=== PATIENT | male | born 1965 | race Caucasian/White ===

== ENCOUNTER 2019-08-08 14:49 | Emergency (ER) | payer BC, SELFPAY ==
--- NOTE | ~2019-08-08 | XR_ITS ---
XR finger 1st RT min 2V DATE: 08/08/2019 15:15 INDICATION: Fall, right hand/first digit injury TECHNIQUE: 3 views of the hand COMPARISON: None FINDINGS: There is osteoarthritic change at the triscaphe and interphalangeal joints primarily. No fr acture or dislocation, periosteal reaction or bone destruction is detected. IMPRESSION: Osteoarthritis Reviewed, dictated and finalized at location A. IMPRESSION: Osteoarthritis
[2019-08-08 15:08] VITALS: BP 136/89; PULSE 98; RESP 16; TEMP 36.3; O2SAT 99
--- NOTE | 2019-08-08 15:18 | ED.UPPEXIN ---
HPI - Extremity Injury (Upper) General Chief Complaint: Extremity Injury, Upper Stated Complaint: Fall Right thumb pain Time Seen by Provider: 08/08/19 15:18 Source: patient and RN notes reviewed History of Present Illness HPI narrative: Patient is a 54-year-old male that presents the urgent care with complaints of right thumb injury. Patient states that yesterday he was on a ladder while trying to change a light bulb above his tub, took a wrong step, and fell trying to catch himself with his right hand/thumb. No other acute complaints or injuries. Denies hitting his head or any loss of consciousness. No acute distress noted. Patient read the plan of care. Related Data Home Medications Medication Instructions Recorded Confirmed No Home Medications 08/08/19 08/08/19 Allergies Allergy/AdvReac Type Severity Reaction Status Date / Time No Known Allergies Allergy Mild Verified 07/04/09 13:07 Review of Systems Review of Systems: Narrative: CONSTITUTIONAL: Denies fever, chills, or sweats. EYES: Denies visual changes, redness, or discharge. ENT: Denies rhinorrhea, congestion, sore throat, or otalgia. CARDIOVASCULAR: Denies chest pain, palpitations, or edema. RESPIRATORY: Denies cough or dyspnea. GASTROINTESTINAL: Denies abdominal pain, nausea, vomiting, or diarrhea. GENITOURINARY: Denies dysuria or hematuria. SKIN: Denies rash or itching. MUSCULOSKELETAL: Reports of right thumb pain and injury NEUROLOGIC: Denies headache, numbness, or weakness. All other systems reviewed are negative, except as documented in HPI. PMFSH Comments At the time of my signature, I reviewed and agree with the nursing past medical, surgical, social, and family history. There is no relevant family history pertinent to the patient complaint. Exam Narrative: Exam Narrative: GENERAL: This is a well-nourished, well-developed patient, in no apparent distress. HEAD: normocephalic, atraumatic. EYES: PERRL. Sclera clear/white. Vision is grossly intact. EARS: External ears normal NOSE: External nose normal with no obvious nasal discharge THROAT: Mucous membranes moist NECK: Neck supple SKIN: warm, intact with no suspicious lesions or rash, good texture and turgor. NEURO: awake, alert, and oriented to person, place and time. There were no obvious focal neurologic abnormalities. EXTREMITIES: Moderate edema and mild ecchymosis noted to the MCP of the right thumb, range of motion not tested due to pain. Capillary refill right upper extremity less than 2 seconds with positive strong radial pulse Course Vital Signs Vital signs: Vital Signs Temperature 97.4 F L 08/08/19 15:08 Pulse Rate 98 08/08/19 15:08 Respiratory Rate 16 08/08/19 15:08 Blood Pressure 136/89 08/08/19 15:08 Pulse Oximetry 99 08/08/19 15:08 Temperature 97.4 F L 08/08/19 15:08 Pulse Rate 98 08/08/19 15:08 Respiratory Rate 16 08/08/19 15:08 Blood Pressure 136/89 08/08/19 15:08 Pulse Oximetry 99 08/08/19 15:08 Reviewed MDM - Extremity Injury (Upper) MDM Narrative Medical decision making narrative: Reviewed x-ray results with the patient. He is aware that x-ray did not show any fracture or dislocation. Patient does have moderate amount of osteoarthritis in the joint. Advised the patient to use an Marcial wrap for comfort or cock up splint. Elevate and use ice and ibuprofen as needed. Follow-up with PCP within 2 to 5 days or for worsening symptoms or failure to improve. Differential Diagnosis Differential diagnosis: Likely finger sprain, dislocation of finger and fracture of hand Imaging Data Radiologist's impression: [facility] [address] [place] [address] XRay Report Signed Patient: Chioma Powell#: [id number] : 1965Acct:[id number] Age/Sex: 54 / MADM Date: 08/08/19 Loc: [facility] Attending Dr: Ordering Physician: Daxa Arellano APN Date of Service: 08/08/19 Procedure(s): XR finger 1st RT
== END 2019-08-08 15:46 | disposition home or self-care (01) ==
PROVIDERS: Emergency Provider Nurse Practitioner Family
DX: S60.011A Contusion of right thumb without damage to nail, initial encounter (principal); M19.041 Primary osteoarthritis, right hand; W11.XXXA Fall on and from ladder, initial encounter
CPT/HCPCS: 73140; 99213; G0463